=== PATIENT | male | born 1995 | race Caucasian/White ===

== ENCOUNTER 2018-02-19 22:07 | Emergency (ER) | payer OTHER ==
[2018-02-19 22:19] VITALS: TEMP 36.8; Ht 177.8 cm
[2018-02-19] MEDS ORDERED: XYLOCAINE 1%/SOD BICARB 20 ML VIAL INFIL ONE (22:45)
--- NOTE | 2018-02-19 22:58 | DIAGNOSTIC IMAGING REPORT ---
HEAD WITHOUT CONTRAST (CT) CT DOSE: 1202.91 mGy.cm HISTORY: Trauma Fall. Head/neck injury TECHNIQUE: Multiaxial CT images of the head were performed without the use of intravenous contrast. A dose lowering technique was utilized adhering to the principles of ALARA. Comparison: None. Findings: The paranasal sinuses and mastoid air cells are clear. The calvarium and skull base are intact. The ventricles and sulci are within normal limits. There is no mass, hematoma, midline shift, or acute infarct. Impression: No acute intracranial abnormality. The above report was generated using voice recognition software. It may contain grammatical, syntax or spelling errors. Electronically signed by: Moshe Hughes M.D. 02/19/2018 10:56 PM Dictated Date/Time: 02/19/2018 10:55 PM
--- NOTE | 2018-02-19 23:00 | DIAGNOSTIC IMAGING REPORT ---
CERVICAL SPINE W/O CT DOSE: HISTORY: Trauma Fall. Head/neck injury TECHNIQUE: Multiaxial CT images of the cervical spine were performed and reformatted in the sagittal and coronal plane without the use of contrast. A dose lowering technique was utilized adhering to the principles of ALARA. COMPARISON: None. FINDINGS: No fractures. No subluxation. Prevertebral soft tissues and the C1-C2 interval are intact. No pneumothorax. IMPRESSION: No fractures within the cervical spine. The above report was generated using voice recognition software. It may contain grammatical, syntax or spelling errors. Electronically signed by: Moshe Hughes M.D. 02/19/2018 10:59 PM Dictated Date/Time: 02/19/2018 10:59 PM
[2018-02-19] MEDS ORDERED: ESCI1TAB10 PO (23:29)
[2018-02-19] MEDS ORDERED: LISD30CA4 PO (23:29)
[2018-02-19] MEDS ORDERED: ESCI10TA17 PO (23:29)
[2018-02-19 23:53] VITALS: BP 136/72; PULSE 89; O2SAT 99
--- NOTE | 2018-02-21 00:15 | EMERGENCY ROOM VISIT NOTE ---
History First contact with patient: 22:33 Chief Complaint: FALL Stated Complaint: FALL, HEAD LAC. History of Present Illness The patient is a 22 year old male who presents to the Emergency Room with complaints of scalp laceration after falling tonight. The patient has been drinking alcohol this evening, when he came back to his apartment, and is remains attempted to put him into bed. The patient lost his balance, fell backwards, and struck his head on a metal part of his bed. The patient did not lose consciousness. He believes he is up-to-date on his tetanus. The patient does have a mild headache but no other symptoms. He is without numbness or paresthesias. He rates his current discomfort as 0/10. He does not report aggravating or alleviating factors. Review of Systems More than 10 systems were reviewed and otherwise negative with the exception of history of present illness. Past Medical/Surgical History No chronic medical disease Family History No pertinent family history Social History Smoking Status: Never Smoker Current/Historical Medications Scheduled Escitalopram (Lexapro), 10 MG PO DAILY Escitalopram Oxalate (Lexapro), 20 MG PO DAILY Lisdexamfetamine Dimesylate (Vyvanse), 1 TAB PO DAILY Physical Exam Vital Signs Date Time Temp Pulse Resp B/P (MAP) Pulse Ox O2 Delivery O2 Flow Rate FiO2 02/19/18 23:53 89 16 136/72 99 02/19/18 22:19 36.8 87 18 139/83 100 Room Air 02/19/18 22:16 88 Physical Exam VITALS: Vitals are noted on the nurse's note and reviewed by myself. Vital signs stable. GENERAL: Well-developed, well-nourished, white male who appears mildly intoxicated but in no acute distress and resting comfortably. Patient is cooperative with the examination. HEAD: There is a 5 cm curvilinear laceration to the left superior occiput EARS: External ear normal. External auditory canals clear, tympanic membranes pearly kimbrough without erythema or effusion bilaterally. EYES: Pupils equal round and reactive to light and accommodation. Conjunctivae without injection, sclerae without icterus. Extraocular movements intact. NOSE: Patent, turbinates without inflammation or discharge. MOUTH: Mucous membranes moist. Tonsils are not enlarged. Pharynx without erythema, blood, or exudate. Uvula midline. Airway patent. NECK: Supple without nuchal rigidity. No lymphadenopathy. No thyromegaly. Cervical spine is nontender. HEART: Regular rate and rhythm without murmurs gallops or rubs. LUNGS: Clear to auscultation bilaterally without wheezes, rales or rhonchi. No retractions or accessory muscle use. MUSCULOSKELETAL: No muscle atrophy, erythema, or edema noted. Full range of motion in all extremities. NEURO: Patient was alert and oriented to person and place, but not time. Medical Decision & Procedures ER Provider Diagnostic Interpretation: HEAD WITHOUT CONTRAST (CT) CT DOSE: 1202.91 mGy.cm HISTORY: Trauma Fall. Head/neck injury TECHNIQUE: Multiaxial CT images of the head were performed without the use of intravenous contrast. A dose lowering technique was utilized adhering to the principles of ALARA. Comparison: None. Findings: The paranasal sinuses and mastoid air cells are clear. The calvarium and skull base are intact. The ventricles and sulci are within normal limits. There is no mass, hematoma, midline shift, or acute infarct. Impression: No acute intracranial abnormality. [~ rep ct add3]] CERVICAL SPINE W/O CT DOSE: HISTORY: Trauma Fall. Head/neck injury TECHNIQUE: Multiaxial CT images of the cervical spine were performed and reformatted in the sagittal and coronal plane without the use of contrast. A dose lowering technique was utilized adhering to the principles of ALARA. COMPARISON: None. FINDINGS: No fractures. No subluxation. Prevertebral soft tissues and the C1-C2 interval are intact. No pneumothorax. IMPRESSION: No fractures within the cervical spine. Procedure Laceration repair. Patient elects to have their laceration repaired. Verbal consent was obtained to perform the procedure. There is an abundance of materials available for the procedure. Patient is not allergic to latex. Using sterile technique the wound was cleaned with Betadine. The area was sterilely draped. 7 ml of 1% buffered lidocaine was used to anesthetize the scalp laceration. Once the patient was anesthetized, the wound was copiously irrigated under pressure with sterile saline. The wound was explored and there were no deep structures injured such as tendons, bone, or significant blood vessels. The laceration was repaired using 7 arleth with the wound edges being well approximated. Hemostasis was achieved. The area was cleaned with sterile saline and dressed with bacitracin ointment and bandage. Patient tolerated the procedure well without complications. Blood loss was negligible. ED Course Physical exam and history were performed. Nursing notes, EMR, and Medication List were personally reviewed. Patient appears to have fallen and suffered injury to his head while drinking tonight. CT scan of the head and neck was performed and reviewed by myself and radiology showing no acute process. The patient's laceration was repaired as above and tolerated the procedure well. Overall the patient appears well for discharge home. He will be given conservative treatment and wound instructions. He was otherwise invited back to the ER with any new, worsening, or concerning symptoms. The chart was completed utilizing [employer] Speech Voice Recognition Software. Grammatical errors, random word insertions, pronoun errors, and incomplete sentences are an occasional consequence of this system due to software limitations, ambient noise, and hardware issues. Any formal questions or concerns about the content, text, or information contained within the body of this dictation should be directly addressed to the provider for clarification. . Medical Decision Differential diagnosis: Etiologies such as concussion, contusion, fracture, subdural hematoma, epidural hematoma, intraparenchymal hemorrhage, as well as other traumatic pathologies were entertained. Impression Primary Impression: Fall Additional Impressions: Scalp laceration Head injury Departure Information Dispostion Home / Self-Care Condition GOOD Referrals [facility] (PCP) [facility] Services Forms HOME CARE DOCUMENTATION FORM, IMPORTANT VISIT INFORMATION Patient Instructions My [facility], ED Laceration All Additional Instructions Keep wound clean and dry. Do not allow any crusting or dried blood to accumulate on arleth. If this occurs, use a mild soap/water on a Q-tip to clean the wound. Do not use Peroxide to clean the wound as this can delay healing Use an antibiotic ointment like Bacitracin for 3-4 days, then let wound dry. You may bathe and shower as normal, but DO NOT SOAK the wound. Staple removal in about 8-10 days with your Family Doctor or in the ER. Return sooner for any signs of infection, increasing redness, swelling, or drainage. Problem Qualifiers
== END 2018-02-19 23:54 | disposition home or self-care (01) ==
LOC: EDBD 22:07 → C.EDC 22:09
DX: S01.01XA Laceration without foreign body of scalp, initial encounter (principal); W01.198A Fall on same level from slipping, tripping and stumbling with subsequent striking against other object, initial encounter; Z79.899 Other long term (current) drug therapy

== ENCOUNTER 2018-03-04 12:30 | Emergency (ER) | payer OTHER ==
[~2018-03-04] VITALS: Ht 180.3 cm; Wt 94.1 kg
[~2018-03-04 12:30] MED LIST: ESCI10TA17 PO; ESCI1TAB10 PO; LISD30CA4 PO
[2018-03-04 12:32] VITALS: BP 157/100; PULSE 101; TEMP 36.7; O2SAT 97; Ht 180.3 cm; Wt 94.1 kg
--- NOTE | 2018-03-04 12:53 | EMERGENCY ROOM VISIT NOTE ---
ED Visit Note First contact with patient: 12:38 CHIEF COMPLAINT: Suture removal This patient returns to the ED today for removal of sutures that were placed 13 days ago. There has been no swelling, redness, or drainage from the wound. The patient feels like the laceration is healing well. REVIEW OF SYSTEMS: Head: No headache, injury or neck pain. Skin: No rash, new lesions, or masses. General: No fever or chills, fatigue, loss of appetite , or significant recent weight gain or loss. PMH: The patient is healthy; there is no significant medical or surgical history. SOCIAL HISTORY: Patient lives at home. PHYSICAL EXAM: Vital Signs: Reviewed Nurse's notes. There is a sutured wound on the L occipital region with no signs of infection. There is no erythema, swelling, or tenderness. EMERGENCY DEPARTMENT COURSE: The sutures were removed without any difficulty and there was no separation of the wound edges. He was informed upon his hypertensive presentation. He notes that when he enters medical facilities this occurs. He is aware. Current/Historical Medications Scheduled Escitalopram (Lexapro), 10 MG PO DAILY Escitalopram Oxalate (Lexapro), 20 MG PO DAILY Lisdexamfetamine Dimesylate (Vyvanse), 1 TAB PO DAILY Allergies Coded Allergies: Latex1 -Allergic Contact Dermititis (Verified Allergy, Intermediate, RASH , 02/19/18) Vital Signs Date Time Temp Pulse Resp B/P (MAP) Pulse Ox O2 Delivery O2 Flow Rate FiO2 03/04/18 12:32 36.7 101 16 157/100 97 Room Air Departure Information Impression Primary Impression: Encounter for removal of arleth Dispostion Home / Self-Care Condition GOOD Referrals [facility] (PCP) Patient Instructions My [facility] Additional Instructions DISCHARGE INSTRUCTIONS AND TREATMENT: Wash any remaining crusts off of the wound today and resume your normal activities.
== END 2018-03-04 13:05 | disposition home or self-care (01) ==
LOC: C.EDB 12:30 → C.EDD 13:05
DX: S01.112D Laceration without foreign body of left eyelid and periocular area, subsequent encounter (principal); X58.XXXD Exposure to other specified factors, subsequent encounter; Z91.040 Latex allergy status